=== PATIENT | male | born 1950 | race Caucasian/White ===

== ENCOUNTER → 2016-07-20 | Outpatient (CLI) | payer BC, MEDICARE ==
--- NOTE | 2016-07-21 14:44 | RAD ---
EXAM DESCRIPTION: Knee,Left Complete CLINICAL HISTORY: PAIN IN LEFT KNEE COMPARISON: None. IMPRESSION: 4 standing views of the left knee show no evidence of acute fracture, focal bone destruction, or joint dislocation. Moderate narrowing of the medial tibiofemoral compartment consistent with osteoarthritic changes are seen. Mild posterior osteophytes of the patella are seen consistent with mild osteoarthritic changes. Mild increased density in the suprapatellar bursa consistent with small joint effusion is noted. Electronically signed by: Manjit Patel MD 07/21/2016 2:44 PM CDT
--- NOTE | 2016-07-21 14:45 | RAD ---
EXAM DESCRIPTION: Pelvis CLINICAL HISTORY: 66 years Male, LEFT HIP PAIN COMPARISON: None. FINDINGS: AP pelvis shows no acute soft tissue or bony abnormality. Mild arthritic changes of both hips are noted. IMPRESSION: Early hip osteoarthritis Electronically signed by: Kian Maria MD 07/21/2016 2:45 PM CDT
== END ==
LOC: LAB.O 15:09
PROVIDERS: ATTEND Family Medicine
DX: M25.552 Pain in left hip (principal); M16.12 Unilateral primary osteoarthritis, left hip; M16.11 Unilateral primary osteoarthritis, right hip; M25.862 Other specified joint disorders, left knee; M25.562 Pain in left knee

== ENCOUNTER → 2017-01-10 | Outpatient (CLI) | payer MEDICARE, BC ==
--- NOTE | 2017-01-11 13:04 | CT ---
EXAM DESCRIPTION: Soft Tissue Neck w/wo Contrast CLINICAL HISTORY: LOCALIZED SWELLING, MASS AND LUMP, NECK COMPARISON: None. TECHNIQUE: Spiral, axial 2.5 mm scans through the neck soft tissues before and after IV contrast. Coronal and sagittal 2.0 mm reconstructions. No adverse reactions. Total Exam DLP: 514.01 mGy-cm. This exam was performed according to our departmental CT dose-optimization program which includes automated exposure control, adjustment of the mA and/or kV according to patient size and/or use of iterative reconstruction technique; to reduce radiation dose to as low as reasonably achievable (ALARA). FINDINGS: A skin marker is seen on the right infra mandibular jaw at the level of the inferior right parotid gland. No skin thickening. No soft tissue mass or abnormal enhancement in the right parotid gland subcutaneous adipose tissues. Subcutaneous fascia normal thickness and enhancement. Symmetric appearance to the contralateral left side. Normal size density and enhancement of the right submandibular gland. No enlarged lymph nodes. No asymmetric mass effect or effacement of the included nasopharynx, oropharynx, hypopharynx and larynx/cervical esophagus. Small lymph nodes in the parapharyngeal space, bilateral carotid spaces, and bilateral paracervical spaces. Normal size density and enhancement of the left parotid gland and submandibular gland. Muscles are symmetric bilaterally. No fluid collections. Symmetric enhancement and size of the bilateral thyroid gland. Mandible is unremarkable. The graft spondylosis cervical spine C4-5 and C5-C6 with left neural foraminal narrowing C5-6. Included lung is unremarkable. IMPRESSION: 1. No soft tissue mass, fluid collection, or abnormal enhancement on the right lower jaw where skin markers located. 2. Salivary glands and thyroid gland normal size density and enhancement. No adenopathy. 3. No mass effect or effacement of the included airway and upper cervical esophagus. 4. Cervical spondylosis as noted. Electronically signed by: Milton Eddy MD 01/11/2017 1:03 PM [employer]
== END ==
LOC: CT 10:33
PROVIDERS: ATTEND Family Medicine
DX: R22.1 Localized swelling, mass and lump, neck (principal)

== ENCOUNTER → 2018-01-24 | Outpatient (CLI) | payer MEDICARE, OTHER | LOC: GMAE 11:56 | PROVIDERS: ATTEND Family Medicine | DX: I10 Essential (primary) hypertension (principal); R94.6 Abnormal results of thyroid function studies; Z12.5 Encounter for screening for malignant neoplasm of prostate | CPT/HCPCS: 84443; G0103 ==

== ENCOUNTER → 2019-06-24 | Outpatient (CLI) | payer MEDICARE, OTHER | LOC: GMAE 11:34 | PROVIDERS: ATTEND Family Medicine | DX: Z12.5 Encounter for screening for malignant neoplasm of prostate (principal); I10 Essential (primary) hypertension; E11.9 Type 2 diabetes mellitus without complications; E78.5 Hyperlipidemia, unspecified | CPT/HCPCS: 84443; G0103 ==